=== PATIENT | male | born 1960 | race Caucasian/White ===

== ENCOUNTER → 2016-11-14 | Outpatient (CLI) | payer OTHER ==
[~2016-11-14] MED LIST: DVN80 PO
--- NOTE | 2016-11-14 11:19 | DIAGNOSTIC IMAGING REPORT ---
CT OF THE LEFT ANKLE WITHOUT CONTRAST CLINICAL HISTORY: Left ankle pain. Evaluate distal lateral tibia and syndesmosis. TECHNIQUE: Axial images of the left ankle were obtained without IV contrast. Sagittal and coronal reconstructions were viewed. COMPARISON STUDY: Left ankle radiographs July 14, 2006. FINDINGS: Alignment of the left ankle is anatomic. There is no acute fracture. There is extensive bony overgrowth with osteophytosis of the distal left tibiofibular syndesmosis. This reflects sequela of old injury. Intrinsic ligaments are suboptimally assessed by CT. Talar dome is intact. No osteochondral abnormality is identified by CT. Alignment of the tarsometatarsal joints is anatomic. There is mild plantar and posterior calcaneal spurring. No mass or fluid collection is shown adjacent to left ankle. Several well-corticated ossicles of the left ankle and hindfoot suggest old injury. No suspicious osseous lesion is identified. Subcutaneous edema of the lateral left ankle is noted. IMPRESSION: 1. Extensive bony overgrowth with osteophytosis of the distal left tibiofibular syndesmosis indicative of old injury. 2. No acute fracture or dislocation of the left ankle. 3. Mild posterior and plantar calcaneal spurring. Electronically signed by: Gigi Dean M.D. 11/14/2016 11:17 AM Dictated Date/Time: 11/14/2016 11:11 AM
== END | disposition home or self-care (01) ==
LOC: C.CTS 10:22
PROVIDERS: ATTEND Orthopaedic Surgery Sports Medicine
DX: M25.572 Pain in left ankle and joints of left foot (principal); M25.772 Osteophyte, left ankle